=== PATIENT | male | born 1965 | race Two or more races ===

== ENCOUNTER 2022-08-28 12:57 | Outpatient (OUT) | payer OTHER, SELFPAY ==
--- NOTE | 2022-08-28 13:09 | US_ITS ---
The [address] [address] Patient Name: ROSA M DUQUE MRN: [id number] date: 1965 Sex: M Assigned Patient Location: US Current Patient Location: US Accession/Order Number: [id number] Exam Date: 08/28/2022 13:10 Report Date: 08/28/2022 16:34 At the request of: KAVIN HARTMANN Procedure: US venous doppler LE LT EXAMINATION: US venous doppler LE LT HISTORY: Deep Vein Thrombosis COMPARISON: Ultrasound venous Doppler leg left 02/27/2022 FINDINGS: REGION: Left lower extremity THROMBI: Proximal femoral vein through popliteal vein. COMPRESSIBILITY: Partial compressibility of the segment; nonocclusive. FLOW: Normal waveform and antegrade flow between 5 and 20 cm/s. OTHER: None. US/US venous doppler LE LT IMPRESSION: 1. Persisting, nonocclusive deep vein thrombus within the left lower extremity extending from proximal vein through popliteal vein. No new findings. Electronically authenticated by: EJ JEAN Date: 08/28/2022 16:34
== END 2022-08-28 12:58 | disposition home or self-care (01) ==
LOC: US 12:57
PROVIDERS: PCP Family Medicine; Visit Provider Family Medicine
DX: I82.412 Acute embolism and thrombosis of left femoral vein (principal)
CPT/HCPCS: 93971

== ENCOUNTER 2023-07-22 07:35 | Outpatient (OUT) | payer OTHER, SELFPAY ==
[2023-07-22 07:58] LABS: Basophils Percent Auto 0.6 % (0.2-2.0); Eosinophils Absolute Auto 0.2 10^3/uL (0.0-0.7); Eosinophils Percent Auto 3.6 % (0.9-7.0); Hematocrit 42.1 % (42.0-54.0); Hemoglobin 14.3 g/dL (14.0-18.0); Immature Granulocytes Abs Auto 0.06 10^3/uL (0.00-0.03); Immature Granulocytes Pct Auto 0.9 % (0.0-0.5); Lymphocytes Absolute Auto 1.6 10^3/uL (1.2-3.8); Lymphocytes Percent Auto 24.3 % (20.5-60.0); Mean Corpuscular Hemoglobin 29.4 pg (25.9-34.0); Mean Corpuscular Volume 86.6 fL (80.0-94.0); Mean Platelet Volume 9.8 fL (9.5-13.5); Monocytes Absolute Auto 0.6 10^3/uL (0.3-0.8); Monocytes Percent Auto 9.7 % (1.7-12.0); Neutrophils Absolute Auto 3.9 10^3/uL (1.4-6.5); Neutrophils Percent Auto 60.9 % (43.0-75.0); Platelet Count 222 10^3/uL (150-450); Red Blood Count 4.86 10^6/uL (4.70-6.10); Red Cell Distribution Width 13.1 % (11.0-15.0); White Blood Count 6.4 10^3/uL (4.0-11.0)
[2023-07-22 09:39] LABS: Alanine Aminotransferase 48 U/L (16-63); Albumin Globulin Ratio 1.2; Albumin Level 3.8 g/dL (3.4-5.0); Alkaline Phosphatase 90 U/L (46-116); Anion Gap 15.8; Aspartate Amino Transferase 25 U/L (15-37); BUN Creatinine Ratio 14.6; Bilirubin Total 0.8 mg/dL (0.2-1.0); Calcium 8.8 mg/dL (8.5-10.1); Carbon Dioxide 24.2 mmol/L (21.0-32.0); Chloride 105 mmol/L (98-107); Chol HDL Ratio 4.7; Cholesterol 150 mg/dL (<=200); Estimated GFR (African America >60 (>=60); Estimated GFR (Non-African Ame >60 (>=60); Free T3 2.51 pg/mL (2.18-3.98); Globulin 3.2 g/dL; Glucose 160 mg/dL (74-106); HDL Cholesterol 32 mg/dL (40-60); Sodium 141 mmol/L (136-145); Thyroid Stimulating Hormone 1.891 uIU/mL (0.358-3.740); Triglycerides 130 mg/dL (<=150)
[2023-07-22 09:52] LABS: Prostate Specific Antigen Dx 1.09 ng/mL (<=4.00)
[2023-07-22 09:58] LABS: Estimated Average Glucose 171 mg/dL; Glycohemoglobin A1C 7.6 % (4.5-6.2)
== END 2023-07-22 07:36 | disposition home or self-care (01) ==
LOC: LAB 07:37
PROVIDERS: PCP Family Medicine; Visit Provider Family Medicine
DX: Z00.00 Encounter for general adult medical examination without abnormal findings (principal); E78.5 Hyperlipidemia, unspecified; R73.09 Other abnormal glucose; Z12.5 Encounter for screening for malignant neoplasm of prostate
CPT/HCPCS: 36415; 80053; 80061; 83036; 83525; 84153; 84436; 84443; 84481; 85025

== ENCOUNTER 2023-08-05 11:27 | Outpatient (OUT) | payer OTHER, SELFPAY | END 2023-08-05 11:28 | disposition home or self-care (01) | LOC: MN 11:28 | PROVIDERS: PCP Family Medicine; Visit Provider Family Medicine | DX: E11.8 Type 2 diabetes mellitus with unspecified complications (principal) | CPT/HCPCS: G0108 ==

== ENCOUNTER 2024-03-23 07:47 | Outpatient (OUT) | payer OTHER, SELFPAY ==
--- OUTSIDE RECORDS SUMMARY | 2024-03-23 07:53 | XMS_ITS | CCD ---
Author Organization [facility] Care Team Providers Care Interlocking And Signal Mechanic Name Role Phone SHAHBAZ ., DR VALE Admitting Unavailable HOY ., DR VALE Attending Unavailable HOY ., DR VALE Consulting Unavailable HOY ., DR VALE Primary Care Unavailable JENNIFER GARCIA Consulting Unavailable HOY ., DR VALE Primary Care Unavailable IJEOMA ARMSTRONG Admitting Unavailable ZIEBER, DR EJ Burns Consulting Unavailable IJEOMA ARMSTRONG Attending Unavailable IJEOMA ARMSTRONG Consulting Unavailable HOY ., DR VALE Primary Care Unavailable HOY ., DR VALE Admitting Unavailable HOY ., DR VALE Attending Unavailable HOY ., DR VALE Consulting Unavailable ZIEBER, DR EJ Burns Consulting Unavailable WEST, DR ROSA M Murphy Consulting Unavailable HOY ., DR VALE Primary Care Unavailable CECIL ., MARILYN Admitting Unavailable CECIL ., MARILYN Attending Unavailable ZIEBER, DR EJ Burns Consulting Unavailable CECIL ., MARILYN Consulting Unavailable HOY ., DR VALE Admitting Unavailable HOY ., DR VALE Attending Unavailable HOY ., DR VALE Consulting Unavailable HOY ., DR VALE Primary Care Unavailable DANIKA, DR ROSA M Murphy Consulting Unavailable HOY ., DR VALE Consulting Unavailable HOY ., DR VALE Primary Care Unavailable IJEOMA ARMSTRONG Attending Unavailable IJEOMA ARMSTRONG Admitting Unavailable ZIEBER, DR EJ Burns Consulting Unavailable Allergies Allergy Classification Reported Allergen(s) Allergy Type Date of Onset Reaction(s) Facility (1 source) Cephalexin Drug Allergy 01-23-2022 [facility] Repository Problems Active Problems Problem Classification Problem Date Documented Da te Episodic/Chronic Abdominal pain (4 sources) Unspecified abdominal pain; Translations: [UNSPECIFIED ABDOMINAL PAIN] Onset: 07-16-2022 Episodic Unclassified (3 sources) LOW BACK PAIN, UNSPECIFIED; Translations: [LOW BACK PAIN, UNSPECIFIED] Onset: 02-04-2022 Past or Other Problems Problem Classification Problem Date Documented Da te Episodic/Chronic 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; Translations: [ASSISTED CURRNT USE ANTICOAGULANTS] Onset: 01-25-2022 Episodic Other non-traumatic joint disorders (4 sources) Pain in left hip; Translations: [PAIN IN LEFT HIP] Onset: 01-23-2022 Episodic Phlebitis; thrombophlebitis and thromboembolism (5 sources) Acute embolism and thrombosis of unspecified deep veins of left lower extremity; Translations: [Acute embolism and thrombosis of left femoral vein] Onset: 01-19-2022 Episodic Residual codes; unclassified (4 sources) Edema, unspecified; Translations: [EDEMA UNSPECIFIED] Onset: 11-26-2021 Episodic Spondylosis; intervertebral disc disorders; other back problems (1 source) Sciatica, left side; Translations: [SCIATICA LEFT SIDE] Onset: 01-25-2022 Episodic Unclassified (1 source) LOW BACK PAIN, UNSPECIFIED; Translations: [LOW BACK PAIN, UNSPECIFIED] Onset: 01-31-2022 Results Test Name Value Interpretation Reference Range Facility XR KUB 1 VIEWon 07-17-2022 XR KUB 1 VIEW EXAMINATION: XR KUB 1 VIEW HISTORY: Abdominal pain , acute left flank pain COMPARISON: No relevant comparison available. FINDINGS: KIDNEY/URETER - RIGHT: No visible renal or ureteral calcifications. KIDNEY/URETER - LEFT: No visible renal or ureteral calcifications. PELVIS: No visible ureteral stones. BOWEL: No abnormal dilation or deviation. BONES: Mild narrowing of the left hip joint space. OTHER: Negative. No abnormal gaseous collections. IMPRESSION: 1. No appreciable urinary tract calculi. 2. Normal bowel gas pattern. 3. Mild degenerative changes of the left hip joint. 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 Karen Larkin Color (U) LT. YELLOW Normal YELLOW [facility] Comment on above: Performed By: #### U ACSFRANCISCO UMICRO ####[facility] [address] [place] [address]Dr. Karen Larkin Glucose Ql (U) Negative Normal NEGATIVE [facility] Comment on above: Performed By: #### U ACSFRANCISCO UMICRO ####[facility] [address] [place] [address]Dr. Karen Larkin Hemoglobin Ql (U) MODERATE Abnormal NEGATIVE [facility] Comment on above: Performed By: #### U ACSFRANCISCO ICRO ####[facility] [address] [place] [address]Dr. Milagrosnorm Larkin Ketones Ql (U) Negative Normal NEGATIVE [facility] Comment on above: Performed By: #### U ACSFRANCISCO ICRO ####[facility] [address] [place], [place] [address]Dr. Karen Larkin LEUKOCYTES Negative Normal NEGATIVE [facility] Comment on above: Performed By: #### U ACSFRANCISCO ICRO ####[facility] [address] [place], [place] [address]Dr. Karen Larkin Nitrite Ql (U) Negative Normal NEGATIVE [facility] Comment on above: Performed By: #### U ACSFRANCISCO ICRO ####[facility] [address] [place] [address]Dr. Karen Larkin pH (U) 6.0 [pH] Normal 5-9 [facility] Comment on above: Performed By: #### U ACSFRANCISCO ICRO ####[facility] [address] [place] [address]Dr. Karen Trae SPEC GRAVITY 1.020 Normal 1.005-<=1.025 [facility] Comment on above: Performed By: #### U ACSFRANCISCO UMICRO ####[facility] [address] [place] [address]Dr. aKren Larkin UA PROTEIN Negative Normal NEGATIVE/ TRACE [facility] Comment on above: Performed By: #### U ACSFRANCISCO, UMICRO ####[facility] [address] [place] [address]Dr. Karen Larkin UR MICRO IND INDICATED Normal [facility] Comment on above: Performed By: #### U ACSIND, UMICRO ####[facility] [address] [place] [address]Dr. Karen Larkin Urobilinogen Qn (U) 0.2 {Silverio'U}/dL Normal 0.2 - 1.0 [facility] Comment on above: Performed By: #### U ACSFRANCISCO, UMICRO ####[facility] [address] [place] [address]Dr. Karen Larkin URINE MICROSCOPIC ONLYon BACTERIA TRACE Abnormal NONE SEEN [facility] Comment on above: Performed By: #### U ACSFRANCISCO, UMICRO ####[facility] [address] [place], [place] [address]Dr. Karen Larkin Bacteria identified Cx Nom (U) NOT INDICATED Normal [facility] Comment on above: Performed By: #### U ACSFRANCISCO, UMICRO ####[facility] [address] [place], [place] [address]Dr. Karen Larkin CAST NONE SEEN Normal NONE SEEN [facility] Comment on above: Performed By: #### U ACSFRANCISCO, UMICRO ####[facility] [address] [place] [address]Dr. Karen Larkin Crystals LM Nom (Urine sed) NONE SEEN Normal NONE SEEN [facility] Comment on above: Performed By: #### U ACSIND, UMICRO ####[facility] [address] [place] [address]Dr. Karen Larkin Epithelial cells LM Ql (Urine sed) RARE Normal NONE SEEN /RARE [facility] Comment on above: Performed By: #### U ACSIND, UMICRO ####[facility] [address] [place] [address]Dr. Karen Larkin MUCOUS NONE SEEN Normal NONE SEEN [facility] Comment on above: Performed By: #### U ACSFRANCISCO UMICRO ####[facility] [address] [place], [place] [address]Dl. Karen Larkin RBC 2-5 Abnormal 0-2 [facility] Comment on above: Performed By: #### U ACSFRANCISCO, UMICRO ####[facility] [address] [place], [place] [address]Af. Karen Larkin WBC 0-2 Abnormal NONE SEEN [facility] Comment on above: Performed By: #### U ACSFRANCISCO, UMICRO ####[facility] [address] [place], [place] [address]Qs. Karen Larkin US SUREKHA DOP LEG LTon 02-28-19 23 US SUREKHA DOP LEG LT EXAMINATION: US SUREKHA DOP LEG LT HISTORY: Acute deep venous thrombosis of left lower extremity ; follow-up COMPARISON: Ultrasound venous Doppler leg left 01/14/2022 FINDINGS: REGION: Left lower extremity THROMBI: Nearly occlusive thrombus throughout the femoral vein and popliteal vein. COMPRESSIBILITY: Noncompressible femoral and popliteal veins. FLOW: Minimal flow within the femoral and popliteal veins. OTHER: None. IMPRESSION: 1. Persistent extensive deep vein thrombus within the femoral and popliteal veins, with interval development of trace amount of flow through these areas. Electronically authenticated by: EJ JEAN Date: 2022-02-28 08:12 Normal [facility] MRI LSPINE WO CONon 02-02-20 22 MRI LSPINE WO CON EXAMINATION: MRI LSP INE WO CON HISTORY: Low back pain , leg pain COMPARISON: No relevant comparison available. TECHNIQUE: A variety of imaging planes and parameters were utilized for visualization of suspected pathology. FINDINGS: For the purposes of numbering, sagittal T2 image # 8 extends from the T11 vertebral body superiorly to the S2-S3 level inferiorly. PARASPINAL AREA: Normal with no visible mass. BONES: Normal alignment with no acute fracture or spondylolisthesis. No bone edema. CORD/CAUDA EQUINA: Normal caliber, contour, and signal intensity. DISC LEVELS: 12-L1: No significant disc/facet abnormality, spinal stenosis, or foraminal stenosis. L1-L2: Moderate diffuse space narrowing and disc desiccation. Posterior annular tear. Diffuse disc bulge. No definite central or foraminal stenosis L2-L3: Broad-based posterior disc protrusion up to 2 mm with annular tear. Ligamentum flavum hypertrophy and facet osteoarthropathy. No central canal stenosis. Minimal bilateral foraminal stenosis. L3-L4: Mild disc space narrowing and disc desiccation. No significant disc bulge or herniation. Ligamentum flavum hypertrophy and facet osteoarthropathy. No central canal stenosis. Mild bilateral foraminal stenosis right greater than left L4-L5: 3 mm anterolisthesis of L4 in relation L5. Posterior central annular tear. Moderate diffuse disc bulge and ligamentum flavum hypertrophy. Moderate to severe facet osteoarthropathy. No central canal stenosis. Mild to moderate bilateral foraminal stenosis L5-S1: No significant disc/facet abnormality, spinal stenosis, or foraminal stenosis. IMPRESSION: Degenerative changes resulting in foraminal stenosis at several levels as detailed above most significant at L4-L5 Electronically authenticated by: ROSA M GARNICA Date: 2022-02-01 07:20 Normal [facility] CBC AUTO DIFFon 01-23-2022 BASO # 0.1 103/ul Normal 0.0-0.1 [facility] Comment on above: Performed By: #### C BC #### [facility] [address] [place] [address] Dr. Karen Larkin Basophils/100 WBC (Bld) 0.6 % Normal 0.2-2.0 [facility] Comment on above: Performed By: #### C BC #### [facility] [address] [place] [address] Dr. Karen Larkin EO # 0.2 103/ul Normal 0.0-0.7 [facility] Comment on above: Performed By: #### C BC #### [facility] [address] [place] [address] Dr. Karen Larkin Eosinophils/100 WBC (Bld) 3.0 % Normal 0.9-7.0 [facility] Comment on above: Performed By: #### C BC #### [facility] [address] [place] [address] Dr. Karen Larkin Erythrocyte distribution width (RBC) [Ratio] 13.3 % Normal 11.0-15.0 [facility] Comment on above: Performed By: #### C BC #### [facility] [address] [place] [address] [address] Karen Larkin Hematocrit (Bld) [Volume fraction] 45.2 % Normal 42.0-54.0 [facility] Comment on above: Performed By: #### C BC #### [facility] [address] [place] [address] [address] Karen Larkin Hemoglobin (Bld) [Mass/Vol] 15.4 g/dL Normal 14.0-18.0 [facility] Comment on above: Performed By: #### C BC #### [facility] [address] [place] [address] [address] Karen Larkin IG # 0.06 10e3/ul Critically high 0.00-0.03 [facility] Comment on above: Performed By: #### C BC #### [facility] [address] [place] [address] Dr. Karen Larkin IG % 0.8 % Critically high 0.0-0.5 [facility] Comment on above: Performed By: #### C BC #### [facility] [address] [place] [address] [address] Karen Larkni LYMPH # 0.8 103/ul Critically low 1.2-3.8 [place] Comment on above: Performed By: #### C BC #### [facility] [address] [place] [address] Dr. Karen Larkin Lymphocytes/100 WBC (Bld) 10.5 % Critically low 20.5-60.0 [facility] Comment on above: Performed By: #### C BC #### [facility] [address] [place] [address] [address] Karen Larkin MANUAL DIFF REQ NO Normal [facility] Comment on above: Performed By: #### C BC #### [facility] [address] [place] [address] Dr. Karen Larkin MCH (RBC) [Entitic mass] 28.7 pg Normal 25.9-34.0 [facility] Comment on above: Performed By: #### C BC #### [facility] [address] [place] [address] [address] Karen Larkin MCHC (RBC) [Mass/Vol] 34.1 g/dL Normal 29.9-35.2 [facility] Comment on above: Performed By: #### C BC #### [facility] [address] [place] [address] Dr. Karen Larkin MCV (RBC) [Entitic vol] 84.3 fL Normal 80.0-94.0 [facility] Comment on above: Performed By: #### C BC #### [facility] [address] [place] [address] Dr. Karen Larkin MONO # 0.5 103/ul Normal 0.3-0.8 [facility] Comment on above: Performed By: #### C BC #### [facility] [address] [place] [address] Dr. Karen Larkin Monocytes/100 WBC (Bld) 6.1 % Normal 1.7-12.0 [facility] Comment on above: Performed By: #### C BC #### [facility] [address] [place] [address] Dr. Karen Larkni NEUT # 6.2 103/ul Normal 1.4-6.5 [facility] Comment on above: Performed By: #### C BC #### [facility] [address] [place] [address] Dr. Karen Larkin Neutrophils/100 WBC (Bld) 79.0 % Critically high 43.0-75.0 [facility] Comment on above: Performed By: #### C BC #### [facility] [address] [place] [address] Dr. Karen Larkin Platelet mean volume (Bld) [Entitic vol] 9.3 fL Critically low 9.5-13.5 [facility] Comment on above: Performed By: #### C BC #### [facility] [address] [place] [address] Dr. Karen Larkin PLT 242 103/ul Normal 150-450 [facility] Comment on above: Performed By: #### C BC #### [facility] [address] [place], [place] [id number] Dr. Karen Larkin RBC 5.36 106/ul Normal 4.70-6.10 [facility] Comment on above: Performed By: #### C BC #### [facility] [address] [place] [address] [address] Karen Larkin WBC 7.9 103/ul Normal 4.0-11.0 [facility] Comment on above: Performed By: #### C BC #### [facility] [id number] Karen Larkin [address] ABD/PELVIS WO CONon 01-23 CT ABD/PELVIS WO CON EXAMINATION: CT ABD/PELVIS WO CON, 01/23/2022 9:56 AM EST HISTORY: Pain COMPARISON: None. TECHNIQUE: CT scan of the abdomen and pelvis was performed without IV contrast. CT dose reduction technique was used, including Automated Exposure Control. FINDINGS: LUNG BASES: No visible pulmonary or pleural disease. LIVER: Diffuse hypoattenuation consistent with fatty infiltration. Some focal sparing at the gallbladder fossa BILIARY: No dilatation or calcification. PANCREAS: No lesion, fluid collection, ductal dilatation, or atrophy. SPLEEN: No enlargement or focal lesion. ADRENALS: No mass or enlargement. KIDNEYS: Mild bilateral parapelvic cysts. 4 mm nonobstructing left nephrolith. No obstructive uropathy BOWEL/MESENTERY: Minimal colonic diverticulosis. No evidence of acute diverticulitis. Nonobstructive bowel gas pattern. Normal appendix. AORTA/VASCULAR: No aortic aneurysm. Mild atherosclerosis. RETROPERITONEUM: No mass or adenopathy. LYMPH NODES: No adenopathy. URINARY BLADDER: Moderate fluid distention PELVIC ORGANS: No visible mass. Pelvic organs appropriate for patient age. ABDOMINAL WALL: No mass or hernia. BONES: No bony lesion or fracture. OTHER: Negative. IMPRESSION: No obstructive uropathy Moderate fluid distention of the urinary bladder Hepatic steatosis Electronically authenticated by: ROSA M GARNICA Date: 2022-01-23 11:42 Normal [facility] PROF 14(COMP METB)on 022 Albumin [Mass/Vol] 4.1 g/dL Normal 3.4-5.0 [facility] Comment on above: Performed By: #### C MP #### [facility] [address] [place] [address] Dr. Karen Larkin Albumin/Globulin [Mass ratio] 1.2 {ratio} Normal [facility] Comment on above: Performed By: #### C MP #### [facility] [address] [place] [address] Dr. Karen Larkin ALP [Catalytic activity/Vol] 79 U/L Normal 46-116 [facility] Comment on above: Performed By: #### C MP #### [facility] [address] [place] [address] Dr. Karen Larkin ALT [Catalytic activity/Vol] 34 U/L Normal 16-63 [facility] Comment on above: Performed By: #### C MP #### [facility] [address] [place] [address] Dr. Karen Larkin Anion gap [Moles/Vol] 9.4 mmol/L Normal [facility] Comment on above: Performed By: #### C MP #### [facility] [address] [place] [address] Dr. Karen Larkin AST [Catalytic activity/Vol] 26 U/L Normal 15-37 [facility] Comment on above: Performed By: #### C MP #### [facility] [address] [place] [address] Dr. Karen Larkin Bilirubin [Mass/Vol] 0.6 mg/dL Normal 0.2-1.0 [facility] Comment on above: Performed By: #### C MP #### [facility] [address] [place] [address] Dr. Karen Larkin Calcium [Mass/Vol] 8.8 mg/dL Normal 8.5-10.1 [facility] Comment on above: Performed By: #### C MP #### [facility] [address] [place] [address] Dr. Karen Larkin Chloride [Moles/Vol] 103 mmol/L Normal 98-107 [facility] Comment on above: Performed By: #### C MP #### [facility] [address] [place] [address] Dr. Karen Larkin CO2 [Moles/Vol] 28.4 mmol/L Normal 21.0-32.0 [facility] Comment on above: Performed By: #### C MP #### [facility] [address] [place] [address] [address] Karen Larkin Creatinine [Mass/Vol] 1.03 mg/dL Normal 0.70-1.30 [facility] Comment on above: Performed By: #### C MP #### [facility] [address] [place] [address] [address] Karen Larkin EGFR-AF SWAZI >60 Normal >=60 [facility] Comment on above: Performed By: #### C MP #### [facility] [address] [place] [address] [address] Karen Larkin EGFR-NON AF SWAZI >60 Normal >=60 [facility] Comment on above: Performed By: #### C MP #### [facility] [address] [place] [address] Dr. Karen Larkin Globulin (S) [Mass/Vol] 3.5 g/dL Normal [facility] Comment on above: Performed By: #### C MP #### [facility] [address] [place] [address] Dr. Karen Larkin Glucose [Mass/Vol] 119 mg/dL Critically high 74-106 [facility] Comment on above: Performed By: #### C MP #### [facility] [address] [place] [address] Dr. Karen Larkin Potassium [Moles/Vol] 4.8 mmol/L Normal 3.5-5.1 [facility] Comment on above: Performed By: #### C MP #### [facility] [address] [place] [address] Dr. aKren Larkin Protein [Mass/Vol] 7.6 g/dL Normal 6.4-8.2 [facility] Comment on above: Performed By: #### C MP #### [facility] [address] [address] [address] Karen Larkin Sodium [Moles/Vol] 136 mmol/L Normal 136-145 [facility] Comment on above: Performed By: #### C MP #### [facility] [address] [place] [address] [address] Karen Larkin Urea nitrogen [Mass/Vol] 11.0 mg/dL Normal 7.0-18.0 [facility] Comment on above: Performed By: #### C MP #### [facility] [address] [address] [address] Karen Larkin Urea nitrogen/Creatinin e [Mass ratio] 10.7 mg/mg Normal [facility] Comment on above: Performed By: #### C MP #### [facility] [address] [address] [address] Karen Larkin PROTIMEon 01-23-2022 INR Coag (PPP) [Relative time] 1.03 {INR} Normal [facility] Comment on above: Performed By: #### P T, PTT #### [facility] [address] [address] [address] Karen Larkin INR GUIDELINES SEE BELOW Normal [facility] Comment on above: Result Comment: ELTON RED INR: 2.0 - 3.0 CONDITIONS NOT LISTED BELOW 2.5 - 3.5 FOR PROSTHETIC HEART VALVE REPLACEMENT 2.5 - 3.5 RECURRENT THROMBOSIS Performed By: #### P T, PTT #### [facility] [address] [address] [address] Karen Larkin PT Coag (PPP) [Time] 11.1 s Normal 9.0-11.6 [facility] Comment on above: Performed By: #### P T, PTT #### [facility] [address] [address] [address] Karen Larkin PTTon 01-23-2022 aPTT Coag (Bld) [Time] 30.0 s Normal 22.3-36.2 [facility] Comment on above: Performed By: #### P T, PTT ####[facility] [address] [place] [address]Dr. Karen Larkin US SUREKHA DOP LEG LTon 01-15-20 US SUREKHA DOP LEG LT EXAMINATION: US SUREKHA DOP LEG LT HISTORY: Acute deep venous thrombosis of left lower extremity COMPARISON: Ultrasound venous Doppler leg left 11/26/2021 FINDINGS: REGION: Left lower extremity THROMBI: Occlusive thrombus within the mid femoral vein through calf veins. Nonocclusive thrombus within proximal femoral vein. Clearing of gastrocnemius veins and great saphenous vein. COMPRESSIBILITY: Noncompressible segments. FLOW: Areas of absent flow. OTHER: None. IMPRESSION: 1. Persistent occlusive deep vein thrombus from the mid femoral vein through the calf veins of the left lower extremity. 2. Some improvement within the proximal femoral vein and involving the great saphenous vein and gastrocnemius veins. Electronically authenticated by: EJ JEAN Date: 2022-01-14 16:28 Normal [facility] US SUREKHA DOP LEG LTon 11-27-19 22 US SUREKHA DOP LEG LT ULTRASOUND LEFT LOWE R EXTREMITY COLOR VENOUS DUPLEX HISTORY: Swelling. COMPARISON: None. PROCEDURE: Duplex ultrasound and Doppler images were obtained of the left lower extremity. Venous duplex examination performed using B-mode, color flow and spectral analysis. FINDINGS: There is thrombus and noncompressibility seen in left lower extremity veins including the left femoral and left popliteal vein. The left posterior tibial vein and left gastrocnemius vein are noncompressible. IMPRESSION: Acute DVT extending from the left femoral vein through the left calf. Electronically authenticated by: JENNIFER GARCIA Date: 2021-11-26 19:21 Normal [facility] Encounters Encounter Date Encounter Type Care Provider Facility Start: 07-16-2022 End: 07-17-[address] KAVIN HARTMANN . Facility:[facility] Start: 02-27-2022 End: 02-28-[address] KAVIN HARTMANN . Facility:[facility] Start: 01-31-2022 End: 02-01-[address] KAVIN HARTMANN . Facility:[facility] Start: 01-23-2022 End: 01-23-[address] ROSA M GARNICA Facility:[facility] Start: 01-14-2022 End: 01-15-[address] KAVIN HARTMANN . Facility:[facility] Start: 11-26-2021 End: 11-27-[address] KAVIN HARTMANN . Facility:[facility] Payers Date Payer Category Payer Unknown [id number] 2.16.84 [id number] 1965 Unknown [id number] 2.16.84 [id number] 1965 Unknown [id number] 2.16.84 [id number] 1965 Unknown [id number] 2.16.84 [id number] 1965 Unknown [id number] 2.16.84 [id number] 1965 Unknown [id number] 2.16.84 [id number] 1961 Unknown [id number] 1961 Unknown [id number] Clinical Note 01-23-2022 Note Date & Type Note Facility 01-23-2022 Note PROCEDURE: XR HIP LT 2 3V W PELVIS HISTORY: Pain ; acute left hip pain COMPARISON: None. FINDINGS: BONES:Minimal narrowing of the superior aspect of the hip joint spaces, left greater than right. Degenerative osteophytes along superior rim of acetabulum. No fracture or dislocation. SOFT TISSUES:No visible soft tissue swelling. EFFUSION:None visible. OTHER: Negative. IMPRESSION: 1. No acute bone abnormality. 2. Mild degenerative joint disease. Electronically authenticated by: EJ JEAN Date: 2022-01-23 09:14 [facility] Summary Purpose Family History No Family History Records Found Advance Directives No Advanced Directives Records Found Additional Source Comments (unrecognized sect ion and content) No Status Records Found INFORMATION SOURCE (unrecogn ized section and content) DATE CREATED AUTHOR 07/26/2022 [facility] FOR RECORDS PERTAINING TO PATIENTS WHO ARE OR HAVE BEEN ENROLLED IN A CHEMICAL DEPENDENCY/SUBSTANCEABUSE PROGRAM, SOME INFORMATION MAY BE OMITTED. This clinical summary was aggregated from multiple sources. Caution should be exercised in using it in the provision of clinical care. This summary normalizes information from multiple sources, and as a consequence, information in this document may materially change the coding, format and clinical context of patient data. In addition, data may be omitted in some cases. CLINICAL DECISIONS SHOULD BE BASED ON THE PRIMARY CLINICAL RECORDS. [facility] [employer] [facility]. provides no warranty or guarantee of the accuracy or completeness of information in this document.
[2024-03-23 08:26] LABS: Basophils Percent Auto 0.7 % (0.2-2.0); Eosinophils Absolute Auto 0.2 10^3/uL (0.0-0.7); Eosinophils Percent Auto 2.4 % (0.9-7.0); Hematocrit 48.2 % (42.0-54.0); Hemoglobin 16.5 g/dL (14.0-18.0); Immature Granulocytes Abs Auto 0.05 10^3/uL (0.00-0.03); Immature Granulocytes Pct Auto 0.8 % (0.0-0.5); Lymphocytes Absolute Auto 1.4 10^3/uL (1.2-3.8); Lymphocytes Percent Auto 23.1 % (20.5-60.0); Mean Corpuscular HGB Conc 34.2 g/dL (29.9-35.2); Mean Corpuscular Hemoglobin 29.8 pg (25.9-34.0); Mean Corpuscular Volume 87.2 fL (80.0-94.0); Mean Platelet Volume 10.7 fL (9.5-13.5); Monocytes Absolute Auto 0.5 10^3/uL (0.3-0.8); Monocytes Percent Auto 8.1 % (1.7-12.0); Neutrophils Percent Auto 64.9 % (43.0-75.0); Platelet Count 215 10^3/uL (150-450); Red Blood Count 5.53 10^6/uL (4.70-6.10); Red Cell Distribution Width 12.2 % (11.0-15.0); White Blood Count 6.1 10^3/uL (4.0-11.0)
[2024-03-23 08:36] LABS: Estimated Average Glucose 272 mg/dL
[2024-03-23 08:38] LABS: Bilirubin Urine NEGATIVE (NEGATIVE); Blood Urine TRACE-L (NEGATIVE); Clarity Urine CLEAR (CLEAR); Color Urine YELLOW (YELLOW); Glucose Urine UA >=1000 mg/dL (NEGATIVE); Ketones Urine NEGATIVE (NEGATIVE); Leukocyte Esterase Urine NEGATIVE (NEGATIVE); Nitrite Urine NEGATIVE (NEGATIVE); Protein Urine TRACE mg/dL (NEG/TRACE); Urobilinogen Urine 0.2 EU/dL (0.2-1.0); pH Urine 5.5 (5.0-9.0)
[2024-03-23 08:49] LABS: Bacteria Urine NONE SEEN #/HPF (NONE SEEN); Mucus Urine NONE SEEN (NONE SEEN); RBC Urine 0-2 #/HPF (0-2); Squamous Epithelial Cell Urine FEW #/LPF (NONE/RARE); WBC Urine NONE SEEN #/HPF (NONE SEEN)
[2024-03-23 08:53] LABS: Alanine Aminotransferase 59 U/L (16-63); Albumin Globulin Ratio 1.3; Albumin Level 4.1 g/dL (3.4-5.0); Alkaline Phosphatase 119 U/L (46-116); Anion Gap 13.2; Aspartate Amino Transferase 25 U/L (15-37); BUN Creatinine Ratio 10.8; Calcium 8.8 mg/dL (8.5-10.1); Carbon Dioxide 28.7 mmol/L (21.0-32.0); Chloride 101 mmol/L (98-107); Chol HDL Ratio 5.2; Cholesterol 160 mg/dL (<=200); Estimated GFR (African America >60 (>=60 mL/min/1.73m^2); Estimated GFR (Non-African Ame >60 (>=60 mL/min/1.73m^2); Free T3 2.46 pg/mL (2.18-3.98); Globulin 3.2 g/dL; Glucose 339 mg/dL (74-106); HDL Cholesterol 31 mg/dL (40-60); Potassium 3.9 mmol/L (3.5-5.1); Sodium 139 mmol/L (136-145); Total Protein 7.3 g/dL (6.4-8.2); Triglycerides 305 mg/dL (<=150)
[2024-03-23 09:11] LABS: Glycohemoglobin A1C 11.1 % (4.5-6.2)
[2024-03-23 10:02] LABS: Prostate Specific Antigen Scrn 1.21 ng/mL (<=4.00)
[2024-03-24 06:09] LABS: Insulin 21.3 uIU/mL (2.6-24.9)
== END 2024-03-23 07:48 | disposition home or self-care (01) ==
LOC: LAB 07:51
PROVIDERS: PCP Family Medicine; Visit Provider Family Medicine
DX: Z00.00 Encounter for general adult medical examination without abnormal findings (principal); E03.9 Hypothyroidism, unspecified; R30.0 Dysuria
CPT/HCPCS: 36415; 80053; 80061; 81001; 83036; 83525; 84436; 84443; 84481; 85025; 87086; G0103

== ENCOUNTER 2024-03-25 08:21 | Outpatient (OUT) | payer OTHER, SELFPAY ==
--- NOTE | 2024-03-25 08:24 | US_ITS ---
The [place] [id number] Patient Name: ROSA M DUQUE MRN: [id number] date: 1965 Sex: M Assigned Patient Location: US Current Patient Location: US Accession/Order Number: [id number] Exam Date: 03/25/2024 08:30 Report Date: 03/25/2024 15:23 At the request of: KAVIN HARTMANN Procedure: US venous doppler LE LT EXAM: US venous doppler LE LT HISTORY: Deep Vein Thrombosis Of Left Lower Extremity COMPARISON: None. TECHNIQUE: Grayscale, color and Doppler FINDINGS: Region: Left leg Thrombus: Echogenic thrombus identified in the mid femoral vein extending to the popliteal vein. 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
--- OUTSIDE RECORDS SUMMARY | 2024-03-25 08:24 | XMS_ITS | CCD ---
Author Organization [facility] Care Team Providers Care Delinquent Account Clerk Name Role Phone SHAHBAZ ., DR VALE [...] (1 source) Cephalexin Drug Allergy 01-23-2022 [facility] Repository Problems Active Problems Problem Classification Problem Date Documented Da te Episodic/Chronic Abdominal pain (4 sources) Unspecified abdominal pain; Translations: [UNSPECIFIED ABDOMINAL PAIN] Onset: 07-16-2022 Episodic Unclassified (3 sources) LOW BACK PAIN, UNSPECIFIED; Translations: [LOW BACK PAIN, UNSPECIFIED] Onset: 02-04-2022 Past or Other Problems Problem Classification Problem Date Documented Da te Episodic/Chronic Other aftercare (1 source) 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; Translations: [SENIOR CARE CURRNT USE ANTICOAGULANTS] Onset: 01-25-2022 Episodic Other [...] EJ JEAN Date: 2022-07-17 08:37 Normal [facility] 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 Karen Larkin Color (U) LT. YELLOW Normal YELLOW [facility] Comment on above: Performed By: #### U ACSFRANCISCO UMICRO ####[facility] [address] [place] [address]Dr. Karen Larkin Glucose Ql (U) Negative Normal NEGATIVE [facility] Comment on above: Performed By: #### U ACSFRANCISCO UMICRO ####[facility] [address] [place] [address]Dr. Karen Larkin Hemoglobin Ql (U) MODERATE Abnormal NEGATIVE The [facility] Comment on above: Performed By: #### U ACSFRANCISCO ICRO ####[facility] [address] [place] [address]Dr. Milagrosnorm Larkin Ketones Ql (U) Negative Normal NEGATIVE [facility] Comment on above: Performed By: #### U ACSFRANCISCO ICRO ####[facility] [address] [place], [place] [address]Dr. Karen Larkin LEUKOCYTES Negative Normal NEGATIVE [facility] Comment on above: Performed By: #### U ACSFRANCISCO ICRO ####[facility] [address] [place], [place] [address]Dr. Karen Larkin Nitrite Ql (U) Negative Normal NEGATIVE [facility] Comment on above: Performed By: #### U ACSFRANCISCO ICRO ####[facility] [address] [place] [address]Dr. Karen Larkin pH (U) 6.0 [pH] Normal 5-9 [facility] Comment on above: Performed By: #### U ACSFRANCISCO ICRO ####[facility] [address] [place] [address]Dr. Karen Trae SPEC GRAVITY 1.020 Normal 1.005-<=1.025 The [facility] Comment on above: Performed By: #### U ACSFRANCISCO UMICRO ####[facility] [address] [place] [address]Dr. Karen Larkin UA PROTEIN Negative Normal NEGATIVE/ TRACE [facility] Comment on above: Performed By: #### U ACSFRANCISCO, UMICRO ####[facility] [address] [place] [address]Dr. Karen Larkin UR MICRO IND INDICATED Normal [facility] Comment on above: Performed By: #### U ACSIND, UMICRO ####[facility] [address] [place] [address]Dr. Karen Larkin Urobilinogen Qn (U) 0.2 {Silverio'U}/dL Normal 0.2 - 1.0 [facility] Comment on above: Performed By: #### U ACSFRANCISCO, UMICRO ####[facility] [address] [place] [address]Dr. Karen Larkin URINE MICROSCOPIC ONLYon BACTERIA TRACE Abnormal NONE SEEN [facility] Comment on above: Performed By: #### U ACSFRANCISCO, UMICRO ####[facility] [address] [place], [place] [address]Dr. Karen Larkin Bacteria identified Cx Nom (U) NOT INDICATED Normal [facility] Comment on above: Performed By: #### U ACSFRANCISCO, UMICRO ####[facility] [address] [place], [place] [address]Dr. Karen Larkin CAST NONE SEEN Normal NONE SEEN [facility] Comment on above: Performed By: #### U ACSFRANCISCO, UMICRO ####[facility] [address] [place] [address]Dr. Karen Larkin Crystals LM Nom (Urine sed) NONE SEEN Normal NONE SEEN [facility] Comment on above: Performed By: #### U ACSIND, UMICRO ####[facility] [address] [place] [address]Dr. Karen Larkin Epithelial cells LM Ql (Urine sed) RARE Normal NONE SEEN /RARE [facility] Comment on above: Performed By: #### U ACSIND, UMICRO ####[facility] [address] [place] [address]Dr. Karen Larkin MUCOUS NONE SEEN Normal NONE SEEN [facility] Comment on above: Performed By: #### U ACSFRANCISCO UMICRO ####[facility] [address] [place], [place] [address]Kl. Karen Larkin RBC 2-5 Abnormal 0-2 [facility] Comment on above: Performed By: #### U ACSFRANCISCO, UMICRO ####[facility] [address] [place], [place] [address]Fh. Karen Larkin WBC 0-2 Abnormal NONE SEEN [facility] Comment on above: Performed By: #### U ACSFRANCISCO, UMICRO ####[facility] [address] [place], [place] [address]Un. Karen Larkin US SUREKHA DOP LEG LTon [...] EJ JEAN Date: 2022-02-28 08:12 Normal [facility] MRI LSPINE WO CONon 02-02-20 22 [...] M GARNICA Date: 2022-02-01 07:20 Normal [facility] CBC AUTO DIFFon 01-23-2022 BASO # 0.1 103/ul Normal 0.0-0.1 [facility] Comment on above: Performed By: #### C BC #### [facility] [address] [place] [address] Dr. Karen Larkin Basophils/100 WBC (Bld) 0.6 % Normal 0.2-2.0 [facility] Comment on above: Performed By: #### C BC #### [facility] [address] [place] [address] Dr. Karen Larkin EO # 0.2 103/ul Normal 0.0-0.7 [facility] Comment on above: Performed By: #### C BC #### [facility] [address] [place] [address] Dr. Karen Larkin Eosinophils/100 WBC (Bld) 3.0 % Normal 0.9-7.0 [facility] Comment on above: Performed By: #### C BC #### [facility] [address] [place] [address] Dr. Karen Larkin Erythrocyte distribution width (RBC) [Ratio] 13.3 % Normal 11.0-15.0 [facility] Comment on above: Performed By: #### C BC #### [facility] [address] [place] [address] [address] Karen Larkin Hematocrit (Bld) [Volume fraction] 45.2 % Normal 42.0-54.0 [facility] Comment on above: Performed By: #### C BC #### [facility] [address] [place] [address] [address] Karen Larkin Hemoglobin (Bld) [Mass/Vol] 15.4 g/dL Normal 14.0-18.0 [facility] Comment on above: Performed By: #### C BC #### [facility] [address] [place] [address] [address] Karen Larkin IG # 0.06 10e3/ul Critically high 0.00-0.03 [facility] Comment on above: Performed By: #### C BC #### [facility] [address] [place] [address] Dr. Karen Larkin IG % 0.8 % Critically high 0.0-0.5 [facility] Comment on above: Performed By: #### C BC #### [facility] [address] [place] [address] [address] Karen Larkin LYMPH # 0.8 103/ul Critically low 1.2-3.8 [facility] Comment on above: Performed By: #### C BC #### [facility] [address] [place] [address] Dr. Karen Larkin Lymphocytes/100 WBC (Bld) 10.5 % Critically low 20.5-60.0 [facility] Comment on above: Performed By: #### C BC #### [facility] [address] [place] [address] [address] Karen Larkin MANUAL DIFF REQ NO Normal [facility] Comment on above: Performed By: #### C BC #### [facility] [address] [place] [address] Dr. Karen Larkin MCH (RBC) [Entitic mass] 28.7 pg Normal 25.9-34.0 [facility] Comment on above: Performed By: #### C BC #### [facility] [address] [place] [address] [address] Karen Larkin MCHC (RBC) [Mass/Vol] 34.1 g/dL Normal 29.9-35.2 [facility] Comment on above: Performed By: #### C BC #### [facility] [address] [place] [address] Dr. Karen Larkin MCV (RBC) [Entitic vol] 84.3 fL Normal 80.0-94.0 [facility] Comment on above: Performed By: #### C BC #### [facility] [address] [place] [address] Dr. Karen Larkin MONO # 0.5 103/ul Normal 0.3-0.8 [facility] Comment on above: Performed By: #### C BC #### [facility] [address] [place] [address] Dr. Karen Larkin Monocytes/100 WBC (Bld) 6.1 % Normal 1.7-12.0 [facility] Comment on above: Performed By: #### C BC #### [facility] [address] [place] [address] Dr. Karen Larkin NEUT # 6.2 103/ul Normal 1.4-6.5 [facility] Comment on above: Performed By: #### C BC #### [facility] [address] [place] [address] Dr. Karen Larkin Neutrophils/100 WBC (Bld) 79.0 % Critically high 43.0-75.0 [facility] Comment on above: Performed By: #### C BC #### [facility] [address] [place] [address] Dr. Karen Larkin Platelet mean volume (Bld) [Entitic vol] 9.3 fL Critically low 9.5-13.5 [facility] Comment on above: Performed By: #### C BC #### [facility] [address] [place] [address] Dr. Karen Larkin PLT 242 103/ul Normal 150-450 [facility] Comment on above: Performed By: #### C BC #### [facility] [address] [place], [place] [id number] Dr. Karen Larkin RBC 5.36 106/ul Normal 4.70-6.10 [facility] Comment on above: Performed By: #### C BC #### [facility] [address] [place] [address] [address] Karen Larkin WBC 7.9 103/ul Normal 4.0-11.0 [facility] Comment on above: Performed By: #### C BC #### [facility] [address] [id number] Karen Larkin [address] ABD/PELVIS WO CONon [...] M GARNICA Date: 2022-01-23 11:42 Normal [facility] PROF 14(COMP METB)on 022 Albumin [Mass/Vol] 4.1 g/dL Normal 3.4-5.0 [facility] Comment on above: Performed By: #### C MP #### [facility] [address] [place] [address] Dr. Karen Larkin Albumin/Globulin [Mass ratio] 1.2 {ratio} Normal [facility] Comment on above: Performed By: #### C MP #### [facility] [address] [place] [address] Dr. Karen Larkin ALP [Catalytic activity/Vol] 79 U/L Normal 46-116 [facility] Comment on above: Performed By: #### C MP #### [facility] [address] [place] [address] Dr. Karen Larkin ALT [Catalytic activity/Vol] 34 U/L Normal 16-63 [facility] Comment on above: Performed By: #### C MP #### [facility] [address] [place] [address] Dr. Karen Larkin Anion gap [Moles/Vol] 9.4 mmol/L Normal [facility] Comment on above: Performed By: #### C MP #### [facility] [address] [place] [address] Dr. Karen Larkin AST [Catalytic activity/Vol] 26 U/L Normal 15-37 [facility] Comment on above: Performed By: #### C MP #### [facility] [address] [place] [address] Dr. Karen Larkin Bilirubin [Mass/Vol] 0.6 mg/dL Normal 0.2-1.0 [facility] Comment on above: Performed By: #### C MP #### [facility] [address] [place] [address] Dr. Karen Larkin Calcium [Mass/Vol] 8.8 mg/dL Normal 8.5-10.1 [facility] Comment on above: Performed By: #### C MP #### [facility] [address] [place] [address] Dr. Karen Larkin Chloride [Moles/Vol] 103 mmol/L Normal 98-107 [facility] Comment on above: Performed By: #### C MP #### [facility] [address] [place] [address] Dr. Karen Larkin CO2 [Moles/Vol] 28.4 mmol/L Normal 21.0-32.0 [facility] Comment on above: Performed By: #### C MP #### [facility] [address] [place] [address] [address] Karen Larkin Creatinine [Mass/Vol] 1.03 mg/dL Normal 0.70-1.30 [facility] Comment on above: Performed By: #### C MP #### [facility] [address] [place] [address] [address] Karen Larkin EGFR-AF TUNISIAN >60 Normal >=60 [facility] Comment on above: Performed By: #### C MP #### [facility] [address] [place] [address] [address] Karen Larkin EGFR-NON AF TUNISIAN >60 Normal >=60 [facility] Comment on above: Performed By: #### C MP #### [facility] [address] [place] [address] Dr. Karen Larkin Globulin (S) [Mass/Vol] 3.5 g/dL Normal [facility] Comment on above: Performed By: #### C MP #### [facility] [address] [place] [address] Dr. Karen Larkin Glucose [Mass/Vol] 119 mg/dL Critically high 74-106 T [facility] Comment on above: Performed By: #### C MP #### [facility] [address] [place] [address] Dr. Karen Larkin Potassium [Moles/Vol] 4.8 mmol/L Normal 3.5-5.1 [facility] Comment on above: Performed By: #### C MP #### [facility] [address] [place] [address] Dr. Karen Larkin Protein [Mass/Vol] 7.6 g/dL Normal 6.4-8.2 [facility] Comment on above: Performed By: #### C MP #### [facility] [address] [place] [address] [address] Karen Larkin Sodium [Moles/Vol] 136 mmol/L Normal 136-145 [facility] Comment on above: Performed By: #### C MP #### [facility] [address] [place] [address] [address] Karen Larkin Urea nitrogen [Mass/Vol] 11.0 mg/dL Normal 7.0-18.0 [facility] Comment on above: Performed By: #### C MP #### [facility] [address] [place] [address] [address] Karen Larkin Urea nitrogen/Creatinin e [Mass ratio] 10.7 mg/mg Normal [facility] Comment on above: Performed By: #### C MP #### [facility] [address] [place] [address] [address] Karen Larkin PROTIMEon 01-23-2022 INR Coag (PPP) [Relative time] 1.03 {INR} Normal [facility] Comment on above: Performed By: #### P T, PTT #### [facility] [address] [place] [address] [address] Karen Larkin INR GUIDELINES SEE BELOW Normal [facility] Comment on above: Result Comment: ELTON RED INR: 2.0 - 3.0 CONDITIONS NOT LISTED BELOW 2.5 - 3.5 FOR PROSTHETIC HEART VALVE REPLACEMENT 2.5 - 3.5 RECURRENT THROMBOSIS Performed By: #### P T, PTT #### [facility] [address] [place] [address] [address] Karen Larkin PT Coag (PPP) [Time] 11.1 s Normal 9.0-11.6 [facility] Comment on above: Performed By: #### P T, PTT #### [facility] [address] [place] [address] [address] Karen Larkin PTTon 01-23-2022 aPTT Coag (Bld) [Time] 30.0 s Normal 22.3-36.2 [facility] Comment on above: Performed By: #### P T, PTT ####[facility] [address] [place] [address]Dr. Karen Larkin US SUREKHA DOP LEG LTon [...] by: EJ JEAN Date: 2022-01-14 16:28 Normal [facility] US SUREKHA DOP LEG LTon 11-27-19 22 [...] by: JENNIFER GARCIA Date: 2021-11-26 19:21 Normal [facility] Encounters Encounter Date Encounter Type Care Provider Facility Start: 07-16-2022 End: 07-17-[address] KAVIN HARTMANN . Facility:[facility] Start: 02-27-2022 End: 02-28-[address] KAIVN HARTMANN . Facility:[facility] Start: 01-31-2022 End: 02-01-[address] KAVIN HARTMANN . Facility:[facility] Start: 01-23-2022 End: 01-23-[address] ROSA M GARNICA Facility:[facility] Start: 01-14-2022 End: 01-15-[address] AKVIN HARTMANN . Facility:[facility] Start: 11-26-2021 End: 11-27-[address] KAVIN HARTMANN . Facility:[facility] Payers Date Payer Category Payer Unknown [id number] 2.16.84 [id number] 1965 Unknown [id number] 2.16.84 [id number] 1965 Unknown [id number] 2.16.84 [id number] 1965 Unknown [id number] 2.16.84 [id number] 1965 Unknown [id number] 2.16.84 [id number] 1965 Unknown [id number] 2.16.84 [id number] 1959 Unknown [id number] 1961 Unknown [id number] Clinical Note 01-23-2022 Note Date & Type [...] by: EJ JEAN Date: 2022-01-23 09:14 [facility] Summary Purpose Family History No Family History Records Found Advance Directives No Advanced Directives Records Found Additional Source Comments (unrecognized sect ion and content) No Status Records Found INFORMATION SOURCE (unrecogn ized section and content) DATE CREATED AUTHOR 07/26/2022 The [facility] FOR RECORDS PERTAINING TO PATIENTS WHO ARE [...] BE BASED ON THE PRIMARY CLINICAL RECORDS. [facility] [employer] [facility]. provides no warranty or guarantee of the accuracy or completeness of information in this document.
== END 2024-03-25 08:22 | disposition home or self-care (01) ==
LOC: US 08:21
PROVIDERS: PCP Family Medicine; Visit Provider Family Medicine
DX: I82.402 Acute embolism and thrombosis of unspecified deep veins of left lower extremity (principal); I82.412 Acute embolism and thrombosis of left femoral vein; I82.432 Acute embolism and thrombosis of left popliteal vein
CPT/HCPCS: 93971